=== PATIENT | male | born 1965 | race Caucasian/White ===

== ENCOUNTER 2017-09-02 12:48 | Emergency (ER) | payer MEDICAID ==
[~2017-09-02] VITALS: Ht 170.2 cm; Wt 62.0 kg
[2017-09-02] MEDS ORDERED: HYDROCODONE/ACETAMINOPHEN 5/325MG TABLET PO ONE (14:00)
[2017-09-02 15:33] VITALS: BP 128/73
== END 2017-09-02 15:45 | disposition home or self-care (01) ==
LOC: ER 13:40
DX: S63.92XA Sprain of unspecified part of left wrist and hand, initial encounter (principal); E78.00 Pure hypercholesterolemia, unspecified; F17.200 Nicotine dependence, unspecified, uncomplicated; W22.01XA Walked into wall, initial encounter; Y93.89 Activity, other specified; Y92.89 Other specified places as the place of occurrence of the external cause; Y99.8 Other external cause status
CPT/HCPCS: 73110; 73130; 99284; Z7610